=== PATIENT | female | born 1945 | race Caucasian/White ===

== ENCOUNTER 2017-06-17 15:07 | Emergency (ER) | payer OTHER ==
[~2017-06-17] VITALS: Ht 167.6 cm; Wt 70.3 kg
[2017-06-17 15:18] VITALS: BP 1174/86
[2017-06-17] MEDS ORDERED: HYDROCODONE-AP1 EAC6 PO (16:36)
== END 2017-06-17 17:44 | disposition home or self-care (01) ==
LOC: ER 15:07
DX: S52.132A Displaced fracture of neck of left radius, initial encounter for closed fracture (principal); W11.XXXA Fall on and from ladder, initial encounter; Y93.89 Activity, other specified; Y92.89 Other specified places as the place of occurrence of the external cause; Y99.8 Other external cause status